=== PATIENT | female | born 2000 | race African-American/Black ===

== ENCOUNTER 2021-08-27 10:59 | Observation (INO) | payer MEDICAID, SELFPAY ==
[2021-08-27] VITALS (7 sets, daily range): BP systolic 94–141; BP diastolic 49–80; PULSE 71–93; RESP 14–17; TEMP 35.8–36.9; O2SAT 94–98; BMI 27.7
--- NOTE | ~2021-08-27 | US_ITS ---
EXAMINATION: US PELVIS CLINICAL INFORMATION: Large right dermoid cyst. Question ovarian torsion. Abdominal pain. COMPARISON: CT abdomen and pelvis 08/27/2021 TECHNIQUE: Ultrasound of the pelvis is performed using both transabdominal and transvaginal transducers along with Doppler. Transvaginal imaging is performed due to inadequate visualization transabdominally. FINDINGS: Uterus: The uterus is anteverted, anteflexed and measures 8.8 x 4.6 x 6.1 cm The double wall endometrial thickness is 1.8 cm. The uterus is smooth in contour and has normal myometrial echogenicity. No visible fibroid. Adnexa: Both ovaries are visualized. There is normal color flow to the adnexa. There is no ovarian torsion. There is no pelvic ascites or fluid collection. Right ovary measures is a complex echogenic partially solid/partially cystic lesion measuring 4.8 x 3.0 x 3.1 cm. Most likely dermoid Left ovary measures 3.4 x 2.0 2.3 cm. No focal lesion seen. US/US pelvic and transvaginal IMPRESSION: Complex lesion cystic and solid consistency in right ovary likely a small echogenic dermoid or cyst. The uterus and the left ovary is unremarkable. Normal arterial flow seen in right ovary.
--- NOTE | ~2021-08-27 | CT_ITS ---
EXAMINATION: CT ABDOMEN AND PELVIS WITH CONTRAST CLINICAL INFORMATION: Lower abdominal pain COMPARISON: None TECHNIQUE: Multidetector volumetric images were obtained from the superior aspect of the liver through the pubic symphysis following administration 85 mL of Omnipaque 350 intravenous contrast. Sagittal and coronal reformatted images were obtained on the technologist's workstation. Oral contrast: No This CT examination was performed using dose optimization techniques as appropriate, variously including the following: *Automated exposure control *Adjustment of mA and/or kV according to patient size (this includes techniques or standardized protocols for targeted exams where dose is matched to indication/reason for exam; i.e. extremities or head) *Use of iterative reconstruction technique DLP: 532 mGy-cm FINDINGS: LUNG BASES: The visualized lung bases are unremarkable. LIVER, GALLBLADDER, AND BILIARY TREE: The liver is normal in size, shape, and attenuation. No focal hepatic lesion or biliary ductal dilatation is present. The gallbladder is unremarkable with no evidence of radiopaque gallstones, gallbladder wall thickening, or obvious pericholecystic inflammatory changes. PANCREAS: Unremarkable. SPLEEN: Unremarkable. ADRENAL GLANDS: Unremarkable. KIDNEYS AND URETERS: The kidneys are normal in size, shape, and attenuation. No hydronephrosis, hydroureter, or calculi seen. No perinephric stranding. BLADDER: Unremarkable. GASTROINTESTINAL TRACT: There is some mildly dilated loops of small bowel seen with a transition zone seen in the mid abdomen (3:36). There is no pneumatosis. There is no free air. The colon is unremarkable. The appendix is unremarkable. ABDOMINAL WALL: No significant hernia is appreciated. LYMPH NODES: Normal. VASCULAR: Unremarkable. PELVIC VISCERA: There is a large right adnexal mass measuring 8.5 x 5.0 x 7.2 cm consistent with a dermoid cyst. This contains large rounded locules of fat as well as fluid and a a tooth like area of calcification. Left ovary appears unremarkable. OSSEOUS STRUCTURES: Unremarkable. CT/CT abdomen pelvis w con IMPRESSION: 1. 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 2. There is evidence of early/partial small bowel obstruction with some mild dilatation of proximal small bowel loops and a transition zone identified as described above Fleischner guidelines were followed.
[2021-08-27 12:30] LABS: MANUAL DIFF FLAG NO
[2021-08-27 12:32] LABS: Appearance Urine HAZY; Color Urine ORANGE; Leukocyte Esterase Urine 2+ (NEG); Urine Blood NEG (NEG); Urine Protein 2+ MG/DL (NEG-TRACE)
[2021-08-27 12:34] LABS: Basophils Percent Auto 0.2 % (0-2); Eosinophils Absolute Auto 0.1 X10*3/uL (0.0-0.4); Eosinophils Percent Auto 0.9 % (0-4); Hematocrit 35.3 % (37.0-47.0); Imm Gran Abs Auto 0.06 X10*3/uL (0.00-0.03); Imm Gran Pct Auto 0.5 % (0.0-0.4); Lymphocytes Absolute Auto 1.6 X10*3/uL (1.2-4.9); Lymphocytes Percent Auto 12.8 % (20-40); Mean Corpuscular HGB Conc 31.2 g/dl (31.0-35.0); Mean Corpuscular Hemoglobin 22.4 pg (27.0-33.0); Mean Corpuscular Volume 71.9 fL (80.0-98.0); Mean Platelet Volume 10.2 fL (9.4-12.3); Monocytes Absolute Auto 0.8 X10*3/uL (0.1-1.2); Monocytes Percent Auto 6.2 % (2-11); Neutrophils Absolute Auto 10.1 x10*3/uL (2.0-8.3); Neutrophils Percent Auto 79.4 % (45-73); Platelet Count 374 X10*3/uL (160-400); Red Blood Count 4.91 X10*6/uL (4.20-5.50); Red Cell Distribution Width 13.6 % (11.0-16.0); White Blood Count 12.7 X10*3/uL (4.8-10.8)
[2021-08-27 12:55] LABS: Anion Gap 10 (12-20); Blood Urea Nitrogen 8 mg/dL (9-16); Calcium 9.7 mg/dL (8.4-10.2); Carbon Dioxide 27 mmol/L (22-29); Chloride 104 mmol/L (96-108); Creatinine Clr Calc Pharmacy 117.7; Estimated Glomerular Filt Rate > 60; Glucose Random 92 mg/dL (60-115); Potassium 4.1 mmol/L (3.3-5.1); Sodium 137 mmol/L (135-145)
[2021-08-27 12:57] LABS: Nitrite Urine POS (NEG)
[2021-08-27 12:59] LABS: Bacteria Urine TRACE /LPF; RBC Urine 0 /HPF (0); Renal Epithelial Cells Urine TRACE /LPF; Squamous Epithelial Cell Urine 3+ /LPF
--- NOTE | 2021-08-27 16:00 | ED_ITS ---
HPI - Female Genitourinary General Chief complaint: Urogenital-Female <POLY Pérez Last Filed: 08/27/21 18:22> Stated complaint: UTI? Kidney stone <POLY Pérez Last Filed: 08/27/21 18:22> Time Seen by Provider: 08/27/21 15:48 <POLY Pérez Last Filed: 08/27/21 18:22> Source: patient <POLY Pérez Last Filed: 08/27/21 18:22> Mode of arrival: ambulatory <POLY Pérez Last Filed: 08/27/21 18:22> Limitations: no limitations <POLY Pérez Last Filed: 08/27/21 18:22> History of Present Illness HPI Narrative: [age] year old female presents with dysuria that started yesterday, and lower abdominal pain radiating to her right flank that started 3 weeks ago. Patient has had normal vaginal discharge, but an increased amount. No foul discharge. Last menstrual period was 07/29/2021. No pain with intercourse. No new sex partners. Patient states that after she is done urinating, she feels a spasm. It is hard to sleep due to the pain. <POLY Pérez Last Filed: 08/27/21 18:22> Related Data Home medications: Home Medications Medication Instructions Recorded Confirmed No Known Home Meds 08/27/21 08/27/21 <POLY Pérez Last Filed: 08/27/21 18:22> Allergies/Adverse reactions: Allergies Allergy/AdvReac Type Severity Reaction Status Date / Time No Known Allergies Allergy Unverified 01/18/20 19:31 [No Known Allergies*] <POLY Pérez Last Filed: 08/27/21 18:22> Review of Systems Constitutional: Constitutional: Denies body ache(s), Denies chills, Denies fatigue, Denies fever(s), Denies headache(s), Denies malaise and Denies weakness <POLY Pérez Last Filed: 08/27/21 18:22> Eyes: Eyes: Denies diplopia <POLY Pérez Last Filed: 08/27/21 18:22> ENT: Denies vertigo, Denies dizziness, Denies headache(s) and Denies throat swelling <Jacki Curry [facility] Last Filed: 08/27/21 18:22> Cardiovascular: Cardiovascular: Denies chest pain, Denies syncope, Denies leg edema, Denies lightheadedness, Denies Loss of Consciousness, Denies palpitations and Denies dyspnea <Jacki Curry [facility] Last Filed: 08/27/21 18:22> Respiratory: Respiratory: Denies chest congestion, Denies cough and Denies dyspnea <Jacki Curry [facility] Last Filed: 08/27/21 18:22> Gastrointestinal: Gastrointestinal: Reports abdominal pain, Denies hematochezia, Denies constipation, Denies diarrhea, Denies nausea and Denies v omiting <Jacki Curry [facility] Last Filed: 08/27/21 18:22> Genitourinary: Genitourinary: Denies abnormal vaginal bleeding, Denies hematuria, Denies genital pruritis, Reports dysuria, Denies pelvic pain, Denies sexual dysfunction, Reports flank pain, Reports urinary urgency, Reports vaginal discharge and Denies vaginal odor <Jacki Curry [facility] Last Filed: 08/27/21 18:22> Musculoskeletal: Musculoskeletal: Reports no additional musculoskeletal complaints <Jacki Curry [facility] Last Filed: 08/27/21 18:22> Integumentary/Breasts: Skin/Breast: Denies lesions and Denies rash <Jacki Curry [facility] Last Filed: 08/27/21 18:22> Neurologic: Denies confusion, Denies vertigo, Denies dizziness, Denies syncope, Denies headache(s) and Denies weakness <Jacki Curry [facility] Last Filed: 08/27/21 18:22> Psychiatric: Psychiatric: Denies anxiety, Denies confusion and Denies depression <Jacki Curry [facility] Last Filed: 08/27/21 18:22> Endocrine: Endocrine: Denies fatigue and Denies palpitations <POLY Pérez Last Filed: 08/27/21 18:22> Allergic/Immunologic: Allergic/Immunologic: Denies throat swelling <POLY Pérez Last Filed: 08/27/21 18:22> PMFSH Past Medical History Medical History: Medical History (Updated 08/27/21 @ 17:23 by POLY Pérez) No known health problems <POLY Pérez Last Filed: 08/27/21 18:22> Social History Social History: Social History Advance Directives: No Advance Directives Information Provided: No <POLY Pérez Last Filed: 08/27/21 18:22> Physical Exam Vital Signs: Vital Signs: Last Vital Signs Temp 98.5 F 08/27/21 20:35 Pulse 71 08/27/21 22:21 Resp 16 08/27/21 23:25 BP 100/55 L 08/27/21 22:21 Pulse Ox 95 08/27/21 22:21 BMI result Body Mass Index 27.7 <POLY Pérez - Last Filed: 08/27/21 18:22> Vital Signs: Last Vital Signs Temp 98.5 F 08/27/21 20:35 Pulse 71 08/27/21 22:21 Resp 16 08/27/21 23:25 BP 100/55 L 08/27/21 22:21 Pulse Ox 95 08/27/21 22:21 BMI result Body Mass Index 27.7 <POLY Harvey - Last Filed: 08/28/21 00:27> Const: General: No confusion <POLY Pérez - Last Filed: 08/27/21 18:22> Nutritional Appearance: well nourished <POLY Pérez - Last Filed: 08/27/21 18:22> Orientation/consciousness: No confusion <POLY Pérez Last Filed: 08/27/21 18:22> Limitations: no limitations <POLY Pérez - Last Filed: 08/27/21 18:22> Eyes: Conjunctivae: conjunctivae normal <POLY Pérez Last Filed: 08/27/21 18:22> Pupils: Equal, round and reactive pupils present <POLY Pérez Last Filed: 08/27/21 18:22> EOM: EOMs intact bilaterally <POLY Pérez Last Filed: 08/27/21 18:22> Neck: Neck: Yes full ROM, Yes no lymphadenopathy and Yes supple <POLY Pérez Last Filed: 08/27/21 18:22> Resp: Effort & Inspection: normal respiratory effort and able to speak in complete sentences <POLY Pérez Last Filed: 08/27/21 18:22> Auscultation: clear to auscultation bilaterally, no crackles, no rales, no rhonchi and no wheezes <Jacki Curry [facility] Last Filed: 08/27/21 18:22> Cardio: Rate: regular rate <Jacki Curry [facility] Last Filed: 08/27/21 18:22> Rhythm: regular rhythm <Jacki Curry [facility] Last Filed: 08/27/21 18:22> Heart sounds: S1 normal heart sound present and S2 normal heart sound present <Jacki Curry [facility] Last Filed: 08/27/21 18:22> GI: Inspection: Yes normal to inspection <POLY Pérez Last Filed: 08/27/21 18:22> Palpation (GI): Soft to palpation, Tenderness to palpation present (GI) in the epigastrum, in the LLQ, in the RLQ and suprapubicly, Guarding due to palpation present (GI) in the LLQ, in the RLQ and other (Epigastric, suprapubic) and not rigid <Jacki Curry [facility] Last Filed: 08/27/21 18:22> Percussion: Yes normal to percussion <Jacki Curry [facility] Last Filed: 08/27/21 18:22> Auscultation: normal bowel sounds <Jacki Curry [facility] Last Filed: 08/27/21 18:22> : General: Yes no CVA tenderness <Jacki Curry [facility] Last Filed: 08/27/21 18:22> External Female Exam: normal external appearance and normal appearance of the urethra <POLY Pérez Last Filed: 08/27/21 18:22> Speculum Exam - Vagina: normal appearance of the vagina, normal palpation, abnormal vaginal discharge white and clear, no lesions and No vaginal bleeding <POLY Pérez Last Filed: 08/27/21 18:22> Speculum Exam - Cervix: normal appearance of the cervix, Cervical os closed and nontender <POLY Pérez - Last Filed: 08/27/21 18:22> Bimanual exam- vagina & uterus: normal palpation and No Cervical tenderness present <Jacki Curry [facility] Last Filed: 08/27/21 18:22> Bimanual Exam- Adnexa, other: normal adnexae, no tenderness and No adnexal tenderness <Jacki Curry [facility] Last Filed: 08/27/21 18:22> OB/external & speculum: No vaginal bleeding <Jacki Curry [facility] Last Filed: 08/27/21 18:22> Back/Spine/Pelvis: Back: no CVA tenderness <Jacki Curry [facility] Last Filed: 08/27/21 18:22> Skin: General skin exam: no rashes or lesions noted <Jacki Curry [facility] Last Filed: 08/27/21 18:22> Neuro: General: No confusion <Jacki Curry [facility] Last Filed: 08/27/21 18:22> Cranial nerves: Yes Equal, round and reactive pupils present <Jacki Curry [facility] Last Filed: 08/27/21 18:22> Extrem: General: Yes normal to inspection and Yes full ROM <Jacki Curry [facility] Last Filed: 08/27/21 18:22> Psych: Appearance: grossly normal <POLY Pérez Last Filed: 08/27/21 18:22> Affect: normal affect <Jacki Curry [facility] Last Filed: 08/27/21 18:22> Attitude: cooperative <Jacki Curry [facility] Last Filed: 08/27/21 18:22> Thought process: Normal thought process present <Jacki Curry [facility] Last Filed: 08/27/21 18:22> Course Course Course Narrative: 21-year-old female presents with dysuria that started yesterday, and 3 weeks of right flank and lower abdominal pain. No fevers. On exam, patient is well appearing, with stable vitals. Patient is tender and guarding in her bilateral lower abdomen, and her epigastric region. Gynecological exam is unremarkable, patient has white vaginal discharge, has no cervical motion tenderness or adnexal tenderness. Patient has no CVA tenderness. Urine is positive for UTI, white blood cells 10-14, leukocyte esterase, nitrite. Patient has elevated white blood cell count at 12.7. Given benign gynecological exam and no CVA tenderness, I do not think pelvic ultrasound is indicated. I will rule out acute pathology for tenderness in patient's lower abdomen with abdominal CT.. I did get swabs for gonorrhea and chlamydia, BV, yeast, Trichomonas. <POLY Pérez Last Filed: 08/27/21 18:22> Reevaluation(s) Reevaluation #1: Lipase is negative. Yeast and Trichomonas are negative. I called the lab and bacterial vaginosis swab will not return until tomorrow. Consulted patient that we will contact her if her BV, gonorrhea, or chlamydia is positive. Patient states that her abdominal pain is better with morphine, she requests pain medication to go home with, I told her we would see what CT scan showed, she could make that decision with Ambrose. Signed patient out to Ambrose Mancia PA-C, pending results of her CT scan. <POLY Pérez Last Filed: 08/27/21 18:22> Reevaluation #2: Abdominal CT scan showed right ovarian cyst 8 cm and also some partial small-bowel obstruction with transition zone. Patient was re-evaluated and stated she has flatus and denies any nausea or vomiting. Patient states last bowel movement was the day before. Due to large ovarian cyst reading on CT scan patient was sent for ultrasound to rule out ovarian torsion which came back negative. On ultrasound ovarian cyst size is actually smaller. Due to CT scan reading of partial small bowel obstruction case was discussed with Dr. Dennison of surgery who recommends patient be admitted for observation. Patient will be given IV antibiotics for UTI <POLY Harvey Last Filed: 08/28/21 00:27> Time: 00:27 <POLY Harvey Last Filed: 08/28/21 00:27> MDM - Female Genitourinary Lab Data Result diagrams: : 08/27/21 12:25 08/27/21 12:25 <POLY Pérez Last Filed: 08/27/21 18:22> Labs: Lab Results 08/27/21 08/27/21 08/27/21 Range/Units 12:25 12:25 12:25 WBC 12.7 H (4.8-10.8) X10*3/uL RBC 4.91 (4.20-5.50) X10*6/uL Hgb 11.0 L (12.0-16.0) g/dl Hct 35.3 L (37.0-47.0) % MCV 71.9 L (80.0-98.0) fL MCH 22.4 L (27.0-33.0) pg MCHC 31.2 (31.0-35.0) g/dl RDW 13.6 (11.0-16.0) % Plt Count 374 (160-400) X10*3/uL MPV 10.2 (9.4-12.3) fL Immature Gran % (Auto) 0.5 H (0.0-0.4) % Neut % (Auto) 79.4 H (45-73) % Lymph % (Auto) 12.8 L (20-40) % [place] % (Auto) 6.2 (2-11) % Eos % (Auto) 0.9 (0-4) % Baso % (Auto) 0.2 (0-2) % Lymph # (Auto) 1.6 (1.2-4.9) X10*3/uL [place] # (Auto) 0.8 (0.1-1.2) X10*3/uL Eos # (Auto) 0.1 (0.0-0.4) X10*3/uL Baso # (Auto) 0.0 (0.0-0.2) X10*3/uL Abs Immat Gran (auto) 0.06 H (0.00-0.03) X10*3/uL Absolute Neuts (auto) 10.1 H (2.0-8.3) x10*3/uL Absolute Nucleated RBC 0.000 (0.0-0.012) X10*3/uL Nucleated RBC % (auto) 0.0 (0.0-0.2) /100WBC Sodium 137 (135-145) mmol/L Potassium 4.1 (3.3-5.1) mmol/L Chloride 104 (96-108) mmol/L Carbon Dioxide 27 (22-29) mmol/L Anion Gap 10 L (12-20) BUN 8 L (9-16) mg/dL Creatinine 0.79 (0.5-1.4) mg/dL Estim Creat Clear Calc 117.7 Estimated GFR > 60 Random Glucose 92 (60-115) mg/dL Calcium 9.7 (8.4-10.2) mg/dL Lipase 38 (8-78) U/L Beta HCG, Quant < 2 mIU/mL Urine Color ORANGE A Urine Appearance HAZY Urine pH 6.0 (5.0-8.0) Ur Specific [place] 1.020 (1.005-1.025) Urine Protein 2+ H (NEG-TRACE) MG/DL Urine Glucose (UA) SEE NOTE (NEG) MG/DL Urine Ketones SEE NOTE (NEG) MG/DL Urine Blood NEG (NEG) Urine Nitrite POS H (NEG) Ur Leukocyte Esterase 2+ H (NEG) Urine RBC 0 (0) /HPF Urine WBC 10-14 H (0-4) /HPF Ur Squamous Epith Cells 3+ /LPF Ur Renal Epithelial Cell TRACE /LPF Urine Bacteria TRACE /LPF <POLY Pérez - Last Filed: 08/27/21 18:22> Lab Results 08/27/21 08/27/21 08/27/21 Range/Units 12:25 12:25 12:25 WBC 12.7 H (4.8-10.8) X10*3/uL RBC 4.91 (4.20-5.50) X10*6/uL Hgb 11.0 L (12.0-16.0) g/dl Hct 35.3 L (37.0-47.0) % MCV 71.9 L (80.0-98.0) fL MCH 22.4 L (27.0-33.0) pg MCHC 31.2 (31.0-35.0) g/dl RDW 13.6 (11.0-16.0) % Plt Count 374 (160-400) X10*3/uL MPV 10.2 (9.4-12.3) fL Immature Gran % (Auto) 0.5 H (0.0-0.4) % Neut % (Auto) 79.4 H (45-73) % Lymph % (Auto) 12.8 L (20-40) % [place] % (Auto) 6.2 (2-11) % Eos % (Auto) 0.9 (0-4) % Baso % (Auto) 0.2 (0-2) % Lymph # (Auto) 1.6 (1.2-4.9) X10*3/uL [place] # (Auto) 0.8 (0.1-1.2) X10*3/uL Eos # (Auto) 0.1 (0.0-0.4) X10*3/uL Baso # (Auto) 0.0 (0.0-0.2) X10*3/uL Abs Immat Gran (auto) 0.06 H (0.00-0.03) X10*3/uL Absolute Neuts (auto) 10.1 H (2.0-8.3) x10*3/uL Absolute Nucleated RBC 0.000 (0.0-0.012) X10*3/uL Nucleated RBC % (auto) 0.0 (0.0-0.2) /100WBC Sodium 137 (135-145) mmol/L Potassium 4.1 (3.3-5.1) mmol/L Chloride 104 (96-108) mmol/L Carbon Dioxide 27 (22-29) mmol/L Anion Gap 10 L (12-20) BUN 8 L (9-16) mg/dL Creatinine 0.79 (0.5-1.4) mg/dL Estim Creat Clear Calc 117.7 Estimated GFR > 60 Random Glucose 92 (60-115) mg/dL Calcium 9.7 (8.4-10.2) mg/dL Lipase 38 (8-78) U/L Beta HCG, Quant < 2 mIU/mL Urine Color ORANGE A Urine Appearance HAZY Urine pH 6.0 (5.0-8.0) Ur Specific [place] 1.020 (1.005-1.025) Urine Protein 2+ H (NEG-TRACE) MG/DL Urine Glucose (UA) SEE NOTE (NEG) MG/DL Urine Ketones SEE NOTE (NEG) MG/DL Urine Blood NEG (NEG) Urine Nitrite POS H (NEG) Ur Leukocyte Esterase 2+ H (NEG) Urine RBC 0 (0) /HPF Urine WBC 10-14 H (0-4) /HPF Ur Squamous Epith Cells 3+ /LPF Ur Renal Epithelial Cell TRACE /LPF Urine Bacteria TRACE /LPF <POLY Harvey - Last Filed: 08/28/21 00:27> Discharge Plan Discharge Clinical Impression: Urinary tract infection <POLY Pérez - Last Filed: 08/27/21 18:22> Patient Disposition: Home, Self-Care <POLY Pérez - Last Filed: 08/27/21 18:22>
[2021-08-27 16:59] LABS: HCG Quantitative < 2 mIU/mL
[2021-08-27] MEDS: 0.9 % Sodium Chloride 1,000 ML 999 ML IV (17:01)
[2021-08-27 17:17] LABS: Lipase 38 U/L (8-78)
[2021-08-27] MEDS: ondansetron HCL 4 MG/2 ML VIAL IVPUSH (17:25)
[2021-08-27] MEDS: Morphine Sulfate 4 MG/ML CARTRIDGE IVPUSH (17:25)
[2021-08-27] MEDS: iohexoL 350 MG/ML 100 ML INFUS..BTL IV (18:11)
[2021-08-27] MEDS: Ketorolac Tromethamine 30 MG/ML VIAL IVPUSH (19:05)
[2021-08-27] MEDS: Morphine Sulfate 2 MG/ML CARTRIDGE IVPUSH (22:40)
[2021-08-27] MEDS: Sulfamethox/Trimeth 800/160 TABLET 1 TAB PO (22:40)
[2021-08-27] MEDS: 0.9 % Sodium Chloride 1,000 ML 80 ML IVCONT (22:41)
[2021-08-27 23:00] LABS: COVID-19 Test Negative (Negative)
[2021-08-28] VITALS (7 sets, daily range): BP systolic 93–109; BP diastolic 53–65; PULSE 70–89; RESP 14–18; TEMP 36.7–37.1; O2SAT 96–100
[2021-08-28 01:01] LABS: Lactic Acid 0.8 mmol/L (0.5-2.0)
[2021-08-28 05:16] LABS: CT PCR DETECTED (Not Detect.); NG PCR NOT DETECTED (Not Detect.)
--- NOTE | 2021-08-28 05:40 | PC.NURSE ---
pt ambulated to BR to void
[2021-08-28] MEDS: Morphine Sulfate 2 MG/ML CARTRIDGE IVPUSH (05:53)
[2021-08-28 07:40] LABS: Glucose, Whole Blood 69 mg/dL (60-115)
--- NOTE | 2021-08-28 07:44 | PC.NURSE ---
sitting up drinking juice. doc mellisa at bedside. states pt can have clear liquids. pt reports left flank pain. no other complaints.
--- NOTE | 2021-08-28 07:46 | P.HPGS_ITS ---
History of Present Illness History of Present Illness Date of Service: 08/28/21 Chief complaint: abdominal pain Narrative: Celia Rutherford is a 21 year old female who has says that she has had pain on the suprapubic area in the left flank for about 2-3 days now. She describes ?spasms? when she urinates as well. She says that she has a little bit of vaginal discharge. She denies any nausea or vomiting. She denies any diarrhea. She had a CAT scan in the emergency room last night showed question of a partial small-bowel obstruction with suggestion of a transition point. She has never had any abdominal surgeries in the past. She admits to being sexually active. Because of this CT scan report, I was consulted to have the patient admitted. She currently says that she continues to have some pain on the left flank area. He continues to have flatus. She has had no nausea. Review of Systems Constitutional: Constitutional: Denies chills and Denies fever(s) Cardiovascular: Cardiovascular: Denies chest pain, Denies dyspnea and Denies dyspnea on exertion Respiratory: Respiratory: Denies cough, Denies dyspnea and Denies dyspnea on exertion Gastrointestinal: Gastrointestinal: Denies hematochezia and Denies change in bowel habits Genitourinary: Genitourinary: Denies hematuria, Reports dysuria and Reports vaginal discharge Musculoskeletal: Musculoskeletal: Denies back pain and Denies limited range of motion Neurologic: Denies focal weakness and Denies convulsions Psychiatric: Psychiatric: Denies depression and Denies mood swings PMFSH Past Medical History Medical History (Updated 08/28/21 @ 07:51 by eMmo Dennison MD) Abdominal pain No known health problems Social History Social History Advance Directives: No Advance Directives Information Provided: No Meds Allergies Allergy/AdvReac Type Severity Reaction Status Date / Time No Known Allergies Allergy Unverified 01/18/20 19:31 [No Known Allergies*] Active Medications: Current Medications Sodium Chloride (Ns) 1,000 mls @ 80 mls/hr IVCONT .[id number] [facility] Last Admin: 08/27/21 22:41 Dose: 80 mls/hr Documented by: Morphine Sulfate (Morphine Sulfate 2 Mg/Ml Cartridge) 2 mg IVPUSH Q3H PRN; Protocol PRN Reason: Pain, Severe (Pain Scale 7-10) Last Admin: 08/28/21 05:53 Dose: 2 mg Documented by: Ondansetron HCl (Ondansetron Hcl 4 Mg/2 Ml Vial) 4 mg IVPUSH Q8H PRN PRN Reason: Nausea and Vomiting Pharmacy Consult (Consult Rx Perform Med Rec) 1 each MISCELLANE ONCE PRN PRN Reason: Consult order Sodium Chloride (0.9 % Sodium Chloride Flush 3 Ml Syringe) 3 ml IVFLUSH QSHIFT [facility] Last Admin: 08/28/21 01:22 Dose: Not Given Documented by: Trimethoprim/Sulfamethoxazole (Sulfamethox/Trimeth 800/160 Tablet) 1 tab PO BID [facility] Last Admin: 08/27/21 22:40 Dose: 1 tab Documented by: Home Medications Medication Instructions Recorded Confirmed Last Taken Type No Known Home Meds 08/27/21 08/27/21 Unknown History Physical Exam Vital Signs: Vital Signs: Last Vital Signs Temp 98.5 F 08/27/21 20:35 Pulse 70 08/28/21 06:21 Resp 16 08/28/21 06:21 BP 101/53 L 08/28/21 02:09 Pulse Ox 98 08/28/21 06:21 BMI result Body Mass Index 27.7 Const: General: comfortable and no acute distress Orientation/consciousness: patient oriented x3 Neck: Neck: Yes no lymphadenopathy Resp: Auscultation: clear to auscultation bilaterally Cardio: Rhythm: regular rhythm GI: Other: Mild tenderness left flank area and suprapubic margin, no guarding rebound Palpation (GI): Soft to palpation, nontender and no guarding Neuro: General: patient oriented x3 Results Results Labs: Short CBC 08/27/21 Range/Units 12:25 WBC 12.7 H (4.8-10.8) X10*3/uL Hgb 11.0 L (12.0-16.0) g/dl Hct 35.3 L (37.0-47.0) % Plt Count 374 (160-400) X10*3/uL BMP 08/27/21 12:25 Sodium 137 Potassium 4.1 Chloride 104 Carbon Dioxide 27 BUN 8 L Creatinine 0.79 Calcium 9.7 Urine 08/27/21 Range/Units 12:25 Urine Color ORANGE A Urine Appearance HAZY Urine pH 6.0 (5.0-8.0) Ur Specific [place] 1.020 (1.005-1.025) Urine Protein 2+ H (NEG-TRACE) MG/DL Urine Glucose (UA) SEE NOTE (NEG) MG/DL Additional studies: Laboratory Results WBC 12.7 X10*3/uL (4.8-10.8) H 08/27/21 12:25 RBC 4.91 X10*6/uL (4.20-5.50) 08/27/21 12:25 Hgb 11.0 g/dl (12.0-16.0) L 08/27/21 12:25 Hct 35.3 % (37.0-47.0) L 08/27/21 12:25 MCV 71.9 fL (80.0-98.0) L 08/27/21 12:25 MCH 22.4 pg (27.0-33.0) L 08/27/21 12:25 MCHC 31.2 g/dl (31.0-35.0) 08/27/21 12:25 RDW 13.6 % (11.0-16.0) 08/27/21 12:25 Plt Count 374 X10*3/uL (160-400) 08/27/21 12:25 MPV 10.2 fL (9.4-12.3) 08/27/21 12:25 Immature Gran % (Auto) 0.5 % (0.0-0.4) H 08/27/21 12:25 Neut % (Auto) 79.4 % (45-73) H 08/27/21 12:25 Lymph % (Auto) 12.8 % (20-40) L 08/27/21 12:25 [place] % (Auto) 6.2 % (2-11) 08/27/21 12:25 Eos % (Auto) 0.9 % (0-4) 08/27/21 12:25 Baso % (Auto) 0.2 % (0-2) 08/27/21 12:25 Lymph # (Auto) 1.6 X10*3/uL (1.2-4.9) 08/27/21 12:25 [place] # (Auto) 0.8 X10*3/uL (0.1-1.2) 08/27/21 12:25 Eos # (Auto) 0.1 X10*3/uL (0.0-0.4) 08/27/21 12:25 Baso # (Auto) 0.0 X10*3/uL (0.0-0.2) 08/27/21 12:25 Abs Immat Gran (auto) 0.06 X10*3/uL (0.00-0.03) H 08/27/21 12:25 Absolute Neuts (auto) 10.1 x10*3/uL (2.0-8.3) H 08/27/21 12:25 Absolute Nucleated RBC 0.000 X10*3/uL (0.0-0.012) 08/27/21 12:25 Nucleated RBC % (auto) 0.0 /100WBC (0.0-0.2) 08/27/21 12:25 Sodium 137 mmol/L (135-145) 08/27/21 12:25 Potassium 4.1 mmol/L (3.3-5.1) 08/27/21 12:25 Chloride 104 mmol/L (96-108) 08/27/21 12:25 Carbon Dioxide 27 mmol/L (22-29) 08/27/21 12:25 Anion Gap 10 (12-20) L 08/27/21 12:25 BUN 8 mg/dL (9-16) L 08/27/21 12:25 Creatinine 0.79 mg/dL (0.5-1.4) 08/27/21 12:25 Estim Creat Clear Calc 117.7 08/27/21 12:25 Estimated GFR > 60 08/27/21 12:25 POC Glucose 69 mg/dL (60-115) 08/28/21 07:36 Random Glucose 92 mg/dL (60-115) 08/27/21 12:25 Lactic Acid 0.8 mmol/L (0.5-2.0) 08/28/21 00:47 Calcium 9.7 mg/dL (8.4-10.2) 08/27/21 12:25 Lipase 38 U/L (8-78) 08/27/21 12:25 Beta HCG, Quant < 2 mIU/mL 08/27/21 12:25 Urine Color ORANGE A 08/27/21 12:25 Urine Appearance HAZY 08/27/21 12:25 Urine pH 6.0 (5.0-8.0) 08/27/21 12:25 Ur Specific [place] 1.020 (1.005-1.025) 08/27/21 12:25 Urine Protein 2+ MG/DL (NEG-TRACE) H 08/27/21 12:25 Urine Glucose (UA) SEE NOTE MG/DL (NEG) 08/27/21 12:25 Urine Ketones SEE NOTE MG/DL (NEG) 08/27/21 12:25 Urine Blood NEG (NEG) 08/27/21 12:25 Urine Nitrite POS (NEG) H 08/27/21 12:25 Ur Leukocyte Esterase 2+ (NEG) H 08/27/21 12:25 Urine RBC 0 /HPF (0) 08/27/21 12:25 Urine WBC 10-14 /HPF (0-4) H 08/27/21 12:25 Ur Squamous Epith Cells 3+ /LPF 08/27/21 12:25 Ur Renal Epithelial Cell TRACE /LPF 08/27/21 12:25 Urine Bacteria TRACE /LPF 08/27/21 12:25 Chlam trachomat DNA PCR DETECTED (Not Detect.) A 08/27/21 16:49 COVID-19 ([facility]DRA) Negative (Negative) 08/27/21 22:25 COVID-19 Clin Com See Note 08/27/21 22:25 N.gonorrhoeae DNA (PCR) NOT DETECTED (Not Detect.) 08/27/21 16:49 Impressions Abdomen/Pelvis CT 08/27/21 18:22 IMPRESSION: 1. 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 2. There is evidence of early/partial small bowel obstruction with some mild dilatation of proximal small bowel loops and a transition zone identified as described above Fleischner guidelines were followed. Pelvic/Transvag US 08/27/21 21:53 IMPRESSION: Complex lesion cystic and solid consistency in right ovary likely a small echogenic dermoid or cyst. The uterus and the left ovary is unremarkable. Normal arterial flow seen in right ovary. Assessment and Plan (1) Urinary tract infection: Status: Acute I have started her on Bactrim. I will consult the hospitalist service with regards to this as she also has significant vaginal discharge she states. (2) Abdominal pain: Status: Acute Her CAT scan shows some mild small bowel dilatation with a question of transition point but clinically she does not have appeared to be obstructed. She does not have any history of abdominal surgeries. Her overall clinical picture is more suggestive of her urine tract infection. I will start her on clear liquids and this will be advanced gradually as tolerated. She has a very benign exam otherwise. She is very minimally tender as well and does not have any significant distension nor vomiting. Quality Stroke Does the patient have a stroke diagnosis?: No VTE Prior VTE?: No VTE Risk Level:: Medical - low VTE Device Contraindication: Treatment Not Indicated VTE Drug Contraindication: Treatment Not Indicated Procedures Date of Service Date of Service: 08/28/21
[2021-08-28 08:17] LABS: Glucose, Whole Blood 86 mg/dL (60-115)
--- NOTE | 2021-08-28 09:16 | PHA.MEDREC ---
Pharmacy Consult ? Medication Reconciliation Pharmacy has completed the medication reconciliation. No home medications or OTC products. Eleni PhoenixD
--- NOTE | 2021-08-28 10:03 | P.CONIM_ITS ---
History of Present Illness Data of Consult Service Date: 08/28/21 Primary Care Provider: None Physician HPI Reason for consult: vaginal discharge, suprapubic pain 21F admitted to surgical service for concern for partial SBO, after evaluation felt clinical picture not c/w SBO, patient reporting several days of increased clear vaginal discharge, 10/10 suprapubic nad left sided pelvic pain. reports sexual activity. chlamydia pcr positive, NG, trichomonas, negative. afebrile. Review of Systems Review of Systems: Constitutional: Denies fever, denies Chills Eyes: denies blurry vision ENT: denies sore throat CVS: denies chest pain Respiratory: Denies dyspnea GI: no abdominal pain : denies dysuria, + vaginal discharge MSK: denies neck pain Skin: denies rash Neuro: denies specific motor weakness Psych: denies suicidal ideation Endocrine: denies heat/cold intolerance Hematologic: denies easy bleeding Allergy: denies hives [facility] Medical History (Updated 08/28/21 @ 10:11 by Feliberto Brandon MD) Abdominal pain No known health problems Pertinent family history: denies CAD Social History Alcohol intake: never Patient Tobacco Use Status: Never used Tobacco Use of substances other than those prescribed or required for medical reasons: No Advance Directives: No Advance Directives Information Provided: No Meds Allergies Allergy/AdvReac Type Severity Reaction Status Date / Time No Known Allergies Allergy Unverified 01/18/20 19:31 [No Known Allergies*] Active Medications: Current Medications Acetaminophen (Acetaminophen 325 Mg Tablet) 650 mg PO Q6H PRN PRN Reason: fever, pain Doxycycline Hyclate (Doxycycline Hyclate 100 Mg Tablet) 100 mg PO Q12H [facility] Stop: 09/04/21 10:14 Sodium Chloride (Ns) 1,000 mls @ 80 mls/hr IVCONT .[id number] [facility] Last Admin: 08/27/21 22:41 Dose: 80 mls/hr Documented by: Morphine Sulfate (Morphine Sulfate 2 Mg/Ml Cartridge) 2 mg IVPUSH Q3H PRN; Protocol PRN Reason: Pain, Severe (Pain Scale 7-10) Last Admin: 08/28/21 05:53 Dose: 2 mg Documented by: Ondansetron HCl (Ondansetron Hcl 4 Mg/2 Ml Vial) 4 mg IVPUSH Q8H PRN PRN Reason: Nausea and Vomiting Pharmacy Consult (Consult Rx Perform Med Rec) 1 each MISCELLANE ONCE PRN PRN Reason: Consult order Sodium Chloride (0.9 % Sodium Chloride Flush 3 Ml Syringe) 3 ml IVFLUSH QSHIFT [facility] Last Admin: 08/28/21 01:22 Dose: Not Given Documented by: Home Medications Medication Instructions Recorded Confirmed Last Taken Type No Known Home Meds 08/27/21 08/28/21 Unknown History Physical Exam Vital Signs and Narrative: Vital Signs: Last Vital Signs Temp 98.1 F 08/28/21 08:04 Pulse 83 08/28/21 08:04 Resp 18 08/28/21 08:04 BP 93/53 L 08/28/21 08:04 Pulse Ox 100 08/28/21 08:04 BMI result Body Mass Index 27.7 General: AO X 3, no acute distress Resp: CTA bilateral, no accessory muscles used CVS: S1,S2,RRR GI: soft, non tender, non distended Neuro: motor grossly intact, alert Psych: appropriate affect, appropriate insight Results Labs CBC and Chem 7: 08/27/21 12:25 08/27/21 12:25 Labs: Laboratory Results - last 24 hr 08/27/21 08/27/21 08/27/21 12:25 12:25 12:25 MCV 71.9 L MCH 22.4 L MCHC 31.2 RDW 13.6 Plt Count 374 MPV 10.2 Immature Gran % (Auto) 0.5 H Neut % (Auto) 79.4 H Lymph % (Auto) 12.8 L [place] % (Auto) 6.2 Eos % (Auto) 0.9 Baso % (Auto) 0.2 Lymph # (Auto) 1.6 [place] # (Auto) 0.8 Eos # (Auto) 0.1 Baso # (Auto) 0.0 Abs Immat Gran (auto) 0.06 H Absolute Neuts (auto) 10.1 H Absolute Nucleated RBC 0.000 Nucleated RBC % (auto) 0.0 Anion Gap 10 L Estim Creat Clear Calc 117.7 Estimated GFR > 60 POC Glucose Random Glucose 92 Lactic Acid Calcium 9.7 Lipase 38 Beta HCG, Quant < 2 Urine Color ORANGE A Urine Appearance HAZY Urine pH 6.0 Ur Specific [place] 1.020 Urine Protein 2+ H Urine Glucose (UA) SEE NOTE Urine Ketones SEE NOTE Urine Blood NEG Urine Nitrite POS H Ur Leukocyte Esterase 2+ H Urine RBC 0 Urine WBC 10-14 H Ur Squamous Epith Cells 3+ Ur Renal Epithelial Cell TRACE Urine Bacteria TRACE Chlam trachomat DNA PCR COVID-19 ([facility]DR[facility]) COVID-19 Clin Com N.gonorrhoeae DNA (PCR) 08/27/21 08/27/21 08/28/21 16:49 22:25 00:47 MCV MCH MCHC RDW Plt Count MPV Immature Gran % (Auto) Neut % (Auto) Lymph % (Auto) [place] % (Auto) Eos % (Auto) Baso % (Auto) Lymph # (Auto) [place] # (Auto) Eos # (Auto) Baso # (Auto) Abs Immat Gran (auto) Absolute Neuts (auto) Absolute Nucleated RBC Nucleated RBC % (auto) Anion Gap Estim Creat Clear Calc Estimated GFR POC Glucose Random Glucose Lactic Acid 0.8 Calcium Lipase Beta HCG, Quant Urine Color Urine Appearance Urine pH Ur Specific [place] Urine Protein Urine Glucose (UA) Urine Ketones Urine Blood Urine Nitrite Ur Leukocyte Esterase Urine RBC Urine WBC Ur Squamous Epith Cells Ur Renal Epithelial Cell Urine Bacteria Chlam trachomat DNA PCR DETECTED A COVID-19 ([facility]DR[facility]) Negative COVID-19 Clin Com See Note N.gonorrhoeae DNA (PCR) NOT DETECTED 08/28/21 08/28/21 07:36 08:14 MCV MCH MCHC RDW Plt Count MPV Immature Gran % (Auto) Neut % (Auto) Lymph % (Auto) [place] % (Auto) Eos % (Auto) Baso % (Auto) Lymph # (Auto) [place] # (Auto) Eos # (Auto) Baso # (Auto) Abs Immat Gran (auto) Absolute Neuts (auto) Absolute Nucleated RBC Nucleated RBC % (auto) Anion Gap Estim Creat Clear Calc Estimated GFR POC Glucose 69 86 Random Glucose Lactic Acid Calcium Lipase Beta HCG, Quant Urine Color Urine Appearance Urine pH Ur Specific [place] Urine Protein Urine Glucose (UA) Urine Ketones Urine Blood Urine Nitrite Ur Leukocyte Esterase Urine RBC Urine WBC Ur Squamous Epith Cells Ur Renal Epithelial Cell Urine Bacteria Chlam trachomat DNA PCR COVID-19 ([facility]DRA) COVID-19 Clin Com N.gonorrhoeae DNA (PCR) Imaging Radiologist's Impressions: Impressions Abdomen/Pelvis CT 08/27/21 18:22 IMPRESSION: 1. 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 2. There is evidence of early/partial small bowel obstruction with some mild dilatation of proximal small bowel loops and a transition zone identified as described above Fleischner guidelines were followed. Pelvic/Transvag US 08/27/21 21:53 IMPRESSION: Complex lesion cystic and solid consistency in right ovary likely a small echogenic dermoid or cyst. The uterus and the left ovary is unremarkable. Normal arterial flow seen in right ovary. Assessment and Plan (1) Chlamydia: Status: Acute (2) PID (acute pelvic inflammatory disease): Status: Acute Plan 21F with pelvic pain. pelvic pain positive chlamydia with signifcant pain, would treat as PID rocepihn 1gm iv times one, 2 weeks po doxy 100mg bid, 2 weeks flagyl 500mg bid
[2021-08-28] MEDS: metroNIDAZOLE 500 MG TABLET PO (10:16)
[2021-08-28] MEDS: Azithromycin 500 MG TABLET 1000 MG PO (10:16)
[2021-08-28] MEDS: cefTRIAXone sodium 1 GM in 0.9 % Sodium Chloride 50 ML IV (10:22)
--- NOTE | 2021-08-28 11:21 | PC.NURSE ---
rn to rn with tal in overflow.
--- NOTE | 2021-08-28 11:45 | MHC.CM.PN ---
CM ATTEMPTED TO SEE PT WHO WAS OFF UNIT. CM TO RETURN
[2021-08-28 11:51] LABS: Glucose, Whole Blood 72 mg/dL (60-115)
[2021-08-28] MEDS: 0.9 % Sodium Chloride 1,000 ML 80 ML IVCONT (13:10)
--- NOTE | 2021-08-28 15:44 | MHC.CM.PN ---
Addendum entered by Vivian Pollock RN 08/28/21 16:12: PT DISCHARGING HOME SELF-CARE, [facility] AND [facility]ACEPTION. REFERRAL FAXED TO FS AT 4:13PM. Original Note: EMR REVIEWED, WAYLON MET W/PT WHO REPORTS SHE LIVES IN [place] W/HER MOTHER, PT IS A&OX4, FULLY INDEPENDENT, PT DENIES USE OF DME AND HOME SERVICES, PT DENIES HAVING A PCP AND STILL HAS [employer] AND REPORTS SHE WILL CALL HER MOM AND WAYLON PERES'S PT WILL NEED REFERRAL FOR FS, PT HAS NOT BEEN VACCINATED FOR COVID AND DENIES HAVING HCP, PT GIVEN EDUCATION AND DECLINES TO COMPLETE AT THIS TIME. D/C PLAN: HOME NO SERVICES, MOTHER FOR TRANSPORT
--- NOTE | 2021-08-28 16:00 | PM.EVENT ---
Event Note Date of Service: 08/28/21 Event Note: Tenderness is most placed suprapubic No tenderness elsewhere abdomen No guarding or rebound Passing flatus Tolerating diet Clinically not obstructed Will treat as UTI and PID- positive for chlamydia Advised to have sexual partner treated as well Okay to DC home with doxycycline Flagyl Discussed plan with medical service Discussed plan with patient's mother as well Patient and mother are both comfortable with the plan
--- NOTE | 2021-08-29 08:41 | P.DS_ITS ---
DS: Providers Provider Date of Service: 08/28/21 Date of admission: 08/27/21 22:03 Primary care physician: None Physician Attending physician on admission: Memo Dennison Consults: 08/28/21 07:54 Consult to Hospitalist Routine Consulting Provider: Hospitalist Reason For Exam: UTI Attending physician on discharge: Memo Dennison DS: Diagnosis Discharge Diagnosis (1) Chlamydia: Status: Acute (2) PID (acute pelvic inflammatory disease): Status: Acute DS: Summary Hospital Course Hospital Course: BRIEF HPI: Celia Rutherford is a 21 year old female who has says that she has had pain on the suprapubic area in the left flank for about 2-3 days now.? She describes ?spasms? when she urinates as well.? She says that she has vaginal discharge. She admits to being sexually active. She denies any nausea or vomiting.? She denies any diarrhea.?She had a CAT scan in the emergency room last night showed question of a partial small-bowel obstruction with suggestion of a transition point.? She has never had any abdominal surgeries in the past.? Because of the CT scan report, surgery was consulted to have the patient admitted.?She currently says that she continues to have some pain on the left flank area.? She continues to have flatus.? HOSPITAL COURSE: Given the CT report of small bowel dilatation with question of transition point, she was admitted to the surgical service for observation. Clinically, she did not appear to be obstructed as she had some evidence of GI function without abdominal distention or significant tenderness upon exam. She was started on clear liquids. Her clinical picture was more suggestive a UTI as she had positive nitrites, leukocyte esterase and bacteria on UA. She was started on bactrim and hospitalist consult was obtained for evaluation for further evaluation given the significant vaginal drainage. Her serologies came back positive for chlamydia. She was seen by the medicine service who recommended treating as PID. She was given one dose of Rocephin 1gm IV and started on Doxycycline 100mg BID PO and Flagyl 500mg BID PO for two weeks. She was advanced to a solid diet. She was reassessed later and had improvement in her pelvic pain and was tolerating a diet without N/V. She was clinically not obstructed and had no peritoneal signs. She remained afebrile. S he was advised to have her sexual partner treated for Chlamydia as well. She was discharged to home on a 2 week course of Doxycycline and flagyl. She is to follow up with her PCP. Status at Discharge Functional status at discharge: independent ambulation Overall status at discharge: patient is back to baseline Time Spent with Patient Time attestation: Total time spent providing and/or coordinating discharge services: Discharge coordination time: Less than 30 minutes Quality: Safe Use of Opioids Does Pt have an Active Cancer Diagnosis on the Problem List?: No Quality: Stroke Does the patient have a stroke diagnosis?: No Physical Exam Vital Signs: Vital Signs: Last Vital Signs Temp 98.6 F 08/28/21 16:00 Pulse 89 08/28/21 16:00 Resp 16 08/28/21 16:00 BP 93/65 08/28/21 16:00 Pulse Ox 100 08/28/21 16:00 BMI result Body Mass Index 27.7 Const: General: comfortable and no acute distress Orientation/consciousness: patient oriented x3 GI: Inspection: No distended Palpation (GI): Tenderness to palpation present (GI) suprapubicly, no guarding and not rigid Percussion: Yes normal to percussion Skin: General skin exam: no rashes or lesions noted Neuro: General: patient oriented x3 DS: Data Data Completed and Pending Labs on day of discharge: Laboratory Results - last 24 hr 08/27/21 08/28/21 16:49 11:47 POC Glucose 72 Latisha species DNA Cancelled Gardnerella DNA Probe Cancelled Trichomonas DNA Probe Cancelled Preliminary micro results at discharge 08/28/21 00:46 Blood Culture - Preliminary Blood - Venous No growth after 24 hours. 08/28/21 00:46 Blood Culture - Preliminary Blood - Venous No growth after 24 hours. Discharge Plan Discharge Patient Disposition: Home, Self-Care Discharge Diagnosis: UTI, PID Referrals: Physician,None [Primary Care Provider] - 2 Weeks Discharge Medications: New doxycycline hyclate 100 mg tablet 100 mg PO BID Qty: 26 0RF metronidazole 500 mg tablet 500 mg PO BID Qty: 26 0RF Discharge Orders: Discharge Order (Routine); Ordered 08/28/21 Ordered By: Memo Dennison Diet: advance to usual diet Activity on Discharge: As tolerated Stand Alone Forms: Patient Portal Discharge page Activity Restrictions/Additional Instructions: Call your primary care provider for follow-up appointment. 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 It is important that you take it as prescribed. If you have fevers, worsening back pain, nausea vomiting and unable to eat, chest pain, shortness of breath, or any other new or concerning symptoms please return to emergency room. Your sexual partner may need to be treated with antibiotics as well Care Plan Goals: Return to baseline health and gradual return to activity. Resolution of UTI. Health Concerns: UTI, pelvic inflammatory disease Plan of Treatment: PO abx Pain control Assessment: Improved Discharge Date/Time: 08/28/21 17:22
== END 2021-08-28 17:22 | disposition home or self-care (01) ==
LOC: HO.ED 17:23 → HO.EDOVER 22:21 → HO.S3 08-28 11:33
PROVIDERS: Physician Assistant; Admitting Provider Surgery; Emergency Provider Emergency Medicine; Visit Provider Surgery
DX: N39.0 Urinary tract infection, site not specified (principal); R10.2 Pelvic and perineal pain; A74.9 Chlamydial infection, unspecified; N73.9 Female pelvic inflammatory disease, unspecified; D27.0 Benign neoplasm of right ovary; Z20.822 Contact with and (suspected) exposure to COVID-19; Z79.899 Other long term (current) drug therapy
CPT/HCPCS: 36415; 74177; 76830; 76856; 80048; 81001; 82947; 83605; 83690; 84702; 85025; 87040; 87480; 87491; 87510; 87591; 87635; 87660; 96361; 96365; 96375; 96376; 99218; 99285; J0696; J1885; J2270; J2405; Q9967

== ENCOUNTER 2021-08-29 10:25 | Emergency (ER) | payer MEDICAID, SELFPAY ==
[2021-08-29 11:10] VITALS: BP 124/83; PULSE 78; RESP 19; TEMP 36.6; O2SAT 99; BMI 27.7
--- NOTE | 2021-08-29 11:25 | ED.ABDPAIN ---
HPI - Abdominal Pain General Chief Complaint: Abdominal Pain Stated Complaint: abd pain Time Seen by Provider: 08/29/21 11:14 Source: patient Mode of arrival: ambulatory Limitations: no limitations History of Present Illness HPI narrative: Patient 21 years old admitted yesterday for chlamydia infection and abdominal pain questionable PID discharged on doxycycline and Flagyl comes back here as she having nausea after taking doxycycline patient denies any significant vaginal discharge no fever no chills no significant abdominal pain Related Data Previous Rx's Medication Instructions Recorded doxycycline hyclate 100 mg tablet 100 mg PO BID #26 tab 08/28/21 metronidazole 500 mg tablet 500 mg PO BID #26 tab 08/28/21 ibuprofen 600 mg tablet 600 mg PO Q6H PRN #20 tab 08/29/21 ondansetron 4 mg disintegrating 4 mg PO Q6-8H PRN #10 tab 08/29/21 tablet Allergies Allergy/AdvReac Type Severity Reaction Status Date / Time No Known Allergies Allergy Unverified 01/18/20 19:31 [No Known Allergies*] Review of Systems Review of Systems Yes all other systems are reviewed and are negative FOR[facility]LY [facility] Past Medical History Medical History Abdominal pain No known health problems Social History Social History Household Members: Family Housing: House Do you presently have visiting nurse or other home services: No Alcohol intake: never Patient Tobacco Use Status: Current everyday Tobacco user Years Smoked: 1 e-Cigarette/Vaping Use: Currently Using Advance Directives: No Advance Directives Information Provided: No Patient : No Physical Exam ED Vital Signs: Vital Signs - 24 hr 08/29/21 11:10 Temperature 98 F Pulse Rate 78 Respiratory Rate 19 Blood Pressure 124/83 Pulse Oximetry 99 BMI result Body Mass Index 27.7 Appearance: Alert. Oriented X3. No acute distress. ENT: Pharynx normal. Oral Mucosa moist Neck: Normal inspection. Neck supple. CVS: Normal heart rate and rhythm. Pulses normal. Respiratory: No respiratory distress. Equal air entry bilateral, Abdomen: Soft and nontender. Bowel sounds are present, no mass palpable, no CVA tenderness Neuro: Oriented X 3. Discharge Plan Discharge Clinical Impression: Chlamydia Patient Disposition: Home, Self-Care Instructions: Chlamydia (ED) Additional Instructions: You can stop doxycycline Continue Flagyl along with nausea medication Prescriptions: New ibuprofen 600 mg tablet 600 mg PO Q6H PRN (Reason: pain) Qty: 20 0RF ondansetron 4 mg tablet,disintegrating 4 mg PO Q6-8H PRN (Reason: nausea and vomiting) Qty: 10 0RF No Action doxycycline hyclate 100 mg tablet 100 mg PO BID Qty: 26 0RF metronidazole 500 mg tablet 500 mg PO BID Qty: 26 0RF
[2021-08-29] MEDS: Ondansetron ODT 4 MG TAB.RAPDIS TRANSLINGU (11:54)
[2021-08-29] MEDS: Azithromycin 500 MG TABLET 1000 MG PO (11:54)
== END 2021-08-29 12:03 | disposition home or self-care (01) ==
PROVIDERS: Emergency Provider Internal Medicine
DX: A74.9 Chlamydial infection, unspecified (principal); R10.9 Unspecified abdominal pain; F17.210 Nicotine dependence, cigarettes, uncomplicated; Z71.6 Tobacco abuse counseling; Z79.899 Other long term (current) drug therapy
CPT/HCPCS: 99283